=== PATIENT | female | born 1935 | race Caucasian/White ===

== ENCOUNTER 2025-01-08 19:12 | Inpatient (IN) | payer OTHER ==
[2025-01-09] MEDS ORDERED: Bisacodyl 10 MG SUPP PR PRN (10:25)
[2025-01-09] MEDS ORDERED: Ondansetron PF 4 MG/2 ML Vial IVP PRN (10:30)
[2025-01-09 16:36] VITALS: BMI 23.8
[2025-01-10] MEDS: Scopolamine 1 mg/72 hour Patch TOP PRN (12:07)
[2025-01-10] MEDS: Glycopyrrolate 0.4 MG/ 2 ML VIAL SLOW IVP PRN (12:07)
[2025-01-12 20:46] VITALS: BP 82/60
[2025-01-12 21:40] VITALS: TEMP 99
== END 2025-01-13 04:34 | disposition expired | DRG 951 ==
LOC: MSONC 19:12
PROVIDERS: ADMIT Family Medicine; ATTEND Family Medicine
DX: Z51.5 Encounter for palliative care (principal); I44.2 Atrioventricular block, complete; Z66 Do not resuscitate; I10 Essential (primary) hypertension; Z98.890 Other specified postprocedural states; Z88.2 Allergy status to sulfonamides; Z79.899 Other long term (current) drug therapy
CPT/HCPCS: J2060; J2270